=== PATIENT | male | born 1965 | race Caucasian/White ===

== ENCOUNTER 2020-10-10 04:48 | Emergency (ER) | payer SELFPAY ==
[2020-10-10 04:49] VITALS: BP 208/60; PULSE 90; RESP 24; TEMP 35; O2SAT 81; BMI 23.6
--- NOTE | 2020-10-10 04:55 | XRR_ITS ---
PROCEDURE INFORMATION: Exam: XR Chest Exam date and time: 10/10/2020 5:05 AM Age: 55 years old Clinical indication: Shortness of breath; Patient HX: Resp arrest. Intubated prior to er arrival. ; Additional info: Resp disress TECHNIQUE: Imaging protocol: XR of the chest. Views: 1 view. COMPARISON: CR Chest 1 [place] [id number] 05/03/2019 2:40 AM FINDINGS: Lungs: There is redistribution and indistinctness of the pulmonary vasculature, in association with increased interstitial markings and bilateral perihilar airspace opacities, which in the setting of cardiomegaly is suggestive of pulmonary edema. Pneumonia should be excluded clinically. No large pleural effusion or pneumothorax. No lineEndotracheal tube is in satisfactory position. Pleural spaces: See Lungs finding. Heart/Mediastinum: Stable cardiomediastinal silhouette. Bones/joints: Unremarkable. XR/XR chest 1V portable [id number] IMPRESSION: Imaging findings of pulmonary edema. Pneumonia should be excluded clinically.
--- NOTE | 2020-10-10 04:55 | CTR_ITS ---
PROCEDURE INFORMATION: Exam: CT Head Without Contrast Exam date and time: 10/10/2020 5:05 AM Age: 55 years old Clinical indication: Altered mental status/memory loss; Patient HX: Resp arrest. Intubated on route to er. Unresponsive. Hypothermic. ; Additional info: AMS TECHNIQUE: Imaging protocol: Computed tomography of the head without contrast. Radiation optimization: All CT scans at this facility use at least one of these dose optimization techniques: automated exposure control; mA and/or kV adjustment per patient size (includes targeted exams where dose is matched to clinical indication); or iterative reconstruction. COMPARISON: No relevant prior studies available. RADIATION DOSE METRICS: Total DLP (mGy-cm): 651.83 FINDINGS: Brain: There is diffuse subarachnoid hemorrhage throughout both cerebral and cerebellar hemispheres, basal cisterns, and extensive acute blood products throughout the mildly dilated ventricular system. Cerebral ventricles: Mild obstructive hydrocephalus is present. Bones/joints: Unremarkable. No acute fracture. Paranasal sinuses: There is partial opacification the maxillary sinuses and mild mucosal thickening of the ethmoid air cells. Mastoid air cells: Visualized mastoid air cells are well aerated. Soft tissues: Unremarkable. CT/CT head wo con* [id number] IMPRESSION: Diffuse subarachnoid hemorrhage throughout both cerebral and cerebellar hemispheres, basal cisterns, and extensive acute blood products throughout the mildly dilated ventricular system. THIS REPORT CONTAINS FINDINGS THAT MAY BE CRITICAL TO PATIENT CARE. The findings were verbally communicated via telephone conference with DR. PICKARD at 5:40 AM CDT on 10/10/2020. The findings were acknowledged and understood. Radiation Dose CTDIVOL = (mGy): DLP = 651.83 (mGy-cm)
--- NOTE | 2020-10-10 04:56 | ECG_ITS ---
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 Measurements Intervals Frost Rate: 70 P: -49 AZ: 124 QRS: -1 QRSD: 130 T: 148 QT: 439 QTc: 474 Interpretive Statements ECTOPIC ATRIAL RHYTHM POSSIBLE LEFT ATRIAL ENLARGEMENT [-0.1mV P WAVE IN V1/V2] ANTEROSEPTAL MYOCARDIAL INFARCTION , PROBABLY OLD [40+ ms Q WAVE IN V1/V2] MODERATE T-WAVE ABNORMALITY, CONSIDER LATERAL ISCHEMIA MODERATE T-WAVE ABNORMALITY, CONSIDER INFERIOR ISCHEMIA Compared to ECG 05/03/2019 09:16:03 Ectopic atrial rhythm now present Myocardial infarct finding now present T-wave abnormality now present Possible ischemia now present Sinus rhythm no longer present ST (T wave) deviation no longer present Electronically Signed On 10-13-2020 12:28:45 CDT by Radha Chavez M.D. [id number] de la o
--- NOTE | 2020-10-10 04:57 | W.ED.SOB ---
HPI - SOB/Dyspnea General: Chief Complaint: Shortness of Breath/Dyspnea Stated Complaint: Resp Arrest Time Seen by Provider: 10/10/20 04:55 Source: EMS Mode of arrival: EMS Limitations: altered mental status History of Present Illness: HPI Narrative: 55-year-old male brought in by EMS with respiratory failure. Per EMS patient was went to bed with last night she woke up this morning to him in severe distress. She states that she was unable to wake him and he was agonal breathing. When EMS arrived he was having agonal breathing they gave him Narcan with no response. He has no known history of recent drug abuse. Patient was intubated at scene by EMS and is currently intubated. Patient has been unresponsive he was given succinylcholine and etomidate and Versed for his intubation. Patient has severe hypertension with blood pressure in the 230s and 40s per EMS. Review of Systems General: Reports: ROS unobtainable due to medical condition and ROS unobtainable due to mental status Physical Exam Const: COMMON NORMALS: negative for patient oriented x3 EXAM LIMITATIONS: altered mental status GENERAL APPEARANCE: in distress and ill appearing HENMT: COMMON NORMALS: normocephalic and atraumatic HEAD & SCALP: normocephalic and atraumatic Eye: COMMON NORMALS: negative for Equal, round and reactive pupils present (Pupils constricted) and EOMs intact bilaterally PUPIL: No Equal, round and reactive pupils present (Pupils constricted) Neck/C-Spine: COMMON NORMALS: full ROM and supple Chest: COMMONS NORMALS: normal inspection of the chest and normal palpation of entire chest wall Resp: AUSCULTATION: wheezes OTHER: Intubated with equal good breath sounds bilaterally Cardio: COMMON NORMALS: regular rate, regular rhythm and No murmurs present (Cardio) RATE: regular rate RHYTHM: regular rhythm GI: COMMON NORMALS: Normal to inspection, nondistended, normoactive bowel sounds present, Soft to palpation, non-tender and no masses PALPATION: Yes Soft to palpation Extremity: COMMON NORMALS: normal to inspection and full ROM Neuro: COMMON NORMALS: negative for patient oriented x3 Psych: COMMON NORMALS: negative for mental status grossly normal Skin: COMMON NORMALS: no rashes or lesions noted and no wounds NARRATIVE SKIN EXAM: Cool to touch GENERAL SKIN EXAM: no rashes or lesions noted Course Vital Signs: Vital signs: Vital Signs Temperature 95.0 F L 10/10/20 04:49 Pulse Rate 90 10/10/20 04:49 Respiratory Rate 24 H 10/10/20 04:49 Blood Pressure 208/60 10/10/20 04:49 Pulse Oximetry 81 L 10/10/20 04:49 MDM - SOB/Dyspnea MDM Narrative: Medical decision making narrative: Patient presents here with a very large subarachnoid hemorrhage. Patient was intubated in route and here he has had no purposeful movements and pupils are pinpoint. Believe is hemorrhage is likely due to hypertensive episode. He is noncompliant on his blood pressure medicines. Patient transferred to [facility]. Patient started on a Cardene drip. Lab Data: Labs: Lab Results 10/10/20 10/10/20 10/10/20 Range/Units 04:49 05:03 05:03 WBC 23.2 H (4.0-10.0) 10^3/ uL RBC 5.41 H (4.1-5.3) 10^6/u L Hgb 15.2 (11.7-16.6) g/dL Hct 50.5 (42.0-52.0) % MCV 93.3 (80-94) fL MCH 28.1 (28.0-34.0) pg MCHC 30.1 (30.0-36.0) g/dL RDW 15.1 (12.1-15.1) % Plt Count 354 (130-400) 10^3/c mm MPV 10.2 (7.4-10.4) fL Neut % (Auto) 77.1 % Lymph % (Auto) 14.7 % Evangeline % (Auto) 4.9 % Eos % (Auto) 2.2 % Baso % (Auto) 0.4 % Neut # (Auto) 17.90 H (1.8-7.7) 10^3/u L Lymph # (Auto) 3.4 (0.8-4.8) 10^3/u L Evangeline # (Auto) 1.1 H (0.2-0.9) 10^3/u L Eos # (Auto) 0.5 (0.0-0.8) 10^3/u L Baso # (Auto) 0.1 (0.0-0.1) 10^3/u L Nucleated RBC % (a uto) 0 % Nucleated RBCs # 0.0 /100WBC PT 14.00 (12.1-14.9) SECO NDS INR 1.05 (0.8-1.2) Specimen Type Arterial Sample Site Brachial, left ABG pH 7.09 L* (7.35-7.45) ABG pCO2 79.9 H* (35-45) mmHg ABG pO2 110.0 H (80.0-100.0) mmH g ABG HCO3 24.0 (22-26) mmol/L ABG Base Excess -8.1 L (-2.0-2.0) mmol/ L Emanuel Test N/a Hematocrit 48.9 (42-52) % O2 Delivery Device Vent FiO2 100.0 % Tidal Volume 0.45 PEEP 10.0 cmH20 Bindery Machine Operator ID Jlg Sodium (136-145) mmol/L Potassium (3.5-5.1) mmol/L Chloride (98-107) mmol/L Carbon Dioxide (22-29) mmol/L Anion Gap (5-19) BUN (6-20) mg/dL Creatinine (0.7-1.2) mg/dL GFR Calculation (90-130) mL/min Glucose (65-115) mg/dL Calculated Osmolal ity (285-295) mOsm/k g Lactate (0.5-2.2) mmol/L Calcium (8.5-10.5) mg/dL Magnesium (1.7-2.3) mg/dL Total Bilirubin (0.15-1.2) mg/dL AST (0-40) U/L ALT (0-41) U/L Alkaline Phosphata se (40-130) IU/L Troponin T Baselin e (0-15) ng/L NT-Pro-B Natriuret Pep (0-125) pg/mL Total Protein (6.6-8.7) g/dL Albumin (3.5-5.2) g/dL Globulin (1.3-4.6) g/dL Urine Color (Yellow) Urine Appearance (CLEAR) Urine pH (5-7) Ur Specific Gravit y (1.005-1.030) Urine Protein (Negative) Urine Glucose (UA) (Normal) Urine Ketones (Negative) Urine Blood (Negative) Urine Nitrate (Negative) Urine Bilirubin (Negative) Urine Urobilinogen (Negative) mg/dL Ur Leukocyte Varsha ase (Negative) Urine RBC (0-2) /hpf Urine WBC (0-5) /hpf Ur Squamous Epith Cells (0-5) /hpf Amorphous Sediment /hpf Urine Bacteria (NONE) /hpf Urine Sperm /hpf Salicylates (3-10) mg/dL Acetaminophen (10-30) ug/mL Ethyl Alcohol (0-10) mg/dL SARS-CoV-2 Ag (Rap id) (Negative) 10/10/20 10/10/20 10/10/20 Range/Units 05:03 05:03 05:03 WBC (4.0-10.0) 10^3/ uL RBC (4.1-5.3) 10^6/u L Hgb (11.7-16.6) g/dL Hct (42.0-52.0) % MCV (80-94) fL MCH (28.0-34.0) pg MCHC (30.0-36.0) g/dL RDW (12.1-15.1) % Plt Count (130-400) 10^3/c mm MPV (7.4-10.4) fL Neut % (Auto) % Lymph % (Auto) % Evangeline % (Auto) % Eos % (Auto) % Baso % (Auto) % Neut # (Auto) (1.8-7.7) 10^3/u L Lymph # (Auto) (0.8-4.8) 10^3/u L Evangeline # (Auto) (0.2-0.9) 10^3/u L Eos # (Auto) (0.0-0.8) 10^3/u L Baso # (Auto) (0.0-0.1) 10^3/u L Nucleated RBC % (a uto) % Nucleated RBCs # /100WBC PT (12.1-14.9) SECO NDS INR (0.8-1.2) Specimen Type Sample Site ABG pH (7.35-7.45) ABG pCO2 (35-45) mmHg ABG pO2 (80.0-100.0) mmH g ABG HCO3 (22-26) mmol/L ABG Base Excess (-2.0-2.0) mmol/ L Emanuel Test Hematocrit (42-52) % O2 Delivery Device FiO2 % Tidal Volume PEEP cmH20 Bindery Machine Operator ID Sodium 138 (136-145) mmol/L Potassium 4.8 (3.5-5.1) mmol/L Chloride 106 (98-107) mmol/L Carbon Dioxide 23 (22-29) mmol/L Anion Gap 13.8 (5-19) BUN 41 H (6-20) mg/dL Creatinine 2.0 H (0.7-1.2) mg/dL GFR Calculation 34.6 L (90-130) mL/min Glucose 236 H (65-115) mg/dL Calculated Osmolal ity 304 H (285-295) mOsm/k g Lactate 1.0 (0.5-2.2) mmol/L Calcium 8.0 L (8.5-10.5) mg/dL Magnesium 2.1 (1.7-2.3) mg/dL Total Bilirubin 0.2 (0.15-1.2) mg/dL AST 16 (0-40) U/L ALT 11 (0-41) U/L Alkaline Phosphata se 121 (40-130) IU/L Troponin T Baselin e 37 H (0-15) ng/L NT-Pro-B Natriuret Pep 5393 H (0-125) pg/mL Total Protein 7.4 (6.6-8.7) g/dL Albumin 4.0 (3.5-5.2) g/dL Globulin 3.4 (1.3-4.6) g/dL Urine Color (Yellow) Urine Appearance (CLEAR) Urine pH (5-7) Ur Specific Gravit y (1.005-1.030) Urine Protein (Negative) Urine Glucose (UA) (Normal) Urine Ketones (Negative) Urine Blood (Negative) Urine Nitrate (Negative) Urine Bilirubin (Negative) Urine Urobilinogen (Negative) mg/dL Ur Leukocyte Varsha ase (Negative) Urine RBC (0-2) /hpf Urine WBC (0-5) /hpf Ur Squamous Epith Cells (0-5) /hpf Amorphous Sediment /hpf Urine Bacteria (NONE) /hpf Urine Sperm /hpf Salicylates < 0.3 L (3-10) mg/dL Acetaminophen < 5.0 L (10-30) ug/mL Ethyl Alcohol < 10 (0-10) mg/dL SARS-CoV-2 Ag (Rap id) (Negative) 10/10/20 10/10/20 Range/Units 05:03 05:07 WBC (4.0-10.0) 10^3/ uL RBC (4.1-5.3) 10^6/u L Hgb (11.7-16.6) g/dL Hct (42.0-52.0) % MCV (80-94) fL MCH (28.0-34.0) pg MCHC (30.0-36.0) g/dL RDW (12.1-15.1) % Plt Count (130-400) 10^3/c mm MPV (7.4-10.4) fL Neut % (Auto) % Lymph % (Auto) % Evangeline % (Auto) % Eos % (Auto) % Baso % (Auto) % Neut # (Auto) (1.8-7.7) 10^3/u L Lymph # (Auto) (0.8-4.8) 10^3/u L Evangeline # (Auto) (0.2-0.9) 10^3/u L Eos # (Auto) (0.0-0.8) 10^3/u L Baso # (Auto) (0.0-0.1) 10^3/u L Nucleated RBC % (a uto) % Nucleated RBCs # /100WBC PT (12.1-14.9) SECO NDS INR (0.8-1.2) Specimen Type Sample Site ABG pH (7.35-7.45) ABG pCO2 (35-45) mmHg ABG pO2 (80.0-100.0) mmH g ABG HCO3 (22-26) mmol/L ABG Base Excess (-2.0-2.0) mmol/ L Emanuel Test Hematocrit (42-52) % O2 Delivery Device FiO2 % Tidal Volume PEEP cmH20 Bindery Machine Operator ID Sodium (136-145) mmol/L Potassium (3.5-5.1) mmol/L Chloride (98-107) mmol/L Carbon Dioxide (22-29) mmol/L Anion Gap (5-19) BUN (6-20) mg/dL Creatinine (0.7-1.2) mg/dL GFR Calculation (90-130) mL/min Glucose (65-115) mg/dL Calculated Osmolal ity (285-295) mOsm/k g Lactate (0.5-2.2) mmol/L Calcium (8.5-10.5) mg/dL Magnesium (1.7-2.3) mg/dL Total Bilirubin (0.15-1.2) mg/dL AST (0-40) U/L ALT (0-41) U/L Alkaline Phosphata se (40-130) IU/L Troponin T Baselin e (0-15) ng/L NT-Pro-B Natriuret Pep (0-125) pg/mL Total Protein (6.6-8.7) g/dL Albumin (3.5-5.2) g/dL Globulin (1.3-4.6) g/dL Urine Color Yellow (Yellow) Urine Appearance Sl cloudy A (CLEAR) Urine pH 5 (5-7) Ur Specific Gravit y 1.020 (1.005-1.030) Urine Protein 3+ H (Negative) Urine Glucose (UA) Norm (Normal) Urine Ketones Negative (Negative) Urine Blood Neg (Negative) Urine Nitrate Negative (Negative) Urine Bilirubin Neg (Negative) Urine Urobilinogen Norm (Negative) mg/dL Ur Leukocyte Varsha ase Trace H (Negative) Urine RBC 0-4 H (0-2) /hpf Urine WBC 25-40 H (0-5) /hpf Ur Squamous Epith Cells 0-4 H (0-5) /hpf Amorphous Sediment 2+ /hpf Urine Bacteria 1+ H (NONE) /hpf Urine Sperm 4+ /hpf Salicylates (3-10) mg/dL Acetaminophen (10-30) ug/mL Ethyl Alcohol (0-10) mg/dL SARS-CoV-2 Ag (Rap id) Negative (Negative) EKG Data^: EKG 1: Attestation: I personally reviewed and interpreted this EKG as follows: EKG Interpretation Date: 10/10/20 EKG interpretation time: 05:06 Interpretation: nsr hr [address] or t wave abnormalities qrs 130 qtc 459 Critical Care Time Critical Care Time: Critical Care Time: Yes Total Critical Care Time: 35 Attestation: This case had a high probability of a clinically significant, sudden, or life threatening deterioration of this patient's condition which required my full and direct attention, intervention and personal management. 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
[2020-10-10 05:01] LABS: Arterial Blood Gas Hematocrit 48.9 % (42-52); Base Excess ABG -8.1 mmol/L (-2.0-2.0); Blood Gas Sample Site Brachial, left; Blood Gas Sample Type Arterial; Blood Gas Tidal Volume 0.45; Oxygen Device VENT
[2020-10-10 05:02] LABS: ABG PCO2 79.9 mmHg (35-45); ABG PH Result 7.09 (7.35-7.45)
[2020-10-10 05:10] LABS: Basophils # 0.1 10^3/uL (0.0-0.1); Basophils % 0.4 %; Eosinophils # 0.5 10^3/uL (0.0-0.8); Eosinophils % 2.2 %; Hematocrit 50.5 % (42.0-52.0); Hemoglobin 15.2 g/dL (11.7-16.6); Lymphocytes # 3.4 10^3/uL (0.8-4.8); Lymphocytes % 14.7 %; Mean Corpuscular HGB Conc 30.1 g/dL (30.0-36.0); Mean Corpuscular Hemoglobin 28.1 pg (28.0-34.0); Mean Corpuscular Volume 93.3 fL (80-94); Mean Platelet Volume 10.2 fL (7.4-10.4); Monocytes # 1.1 10^3/uL (0.2-0.9); Monocytes % 4.9 %; Neutrophils % 77.1 %; Nucleated Red Blood Cells % 0 %; Platelet Count 354 10^3/cmm (130-400); Red Blood Count 5.41 10^6/uL (4.1-5.3); Red Cell Distribution Width 15.1 % (12.1-15.1); White Blood Count 23.2 10^3/uL (4.0-10.0)
--- NOTE | 2020-10-10 05:17 | PC.NURSE ---
EKG taken and given to Dr. Bower
[2020-10-10 05:20] LABS: INR 1.05 (0.8-1.2)
[2020-10-10 05:28] LABS: Add Urine Microscopic? YES; Bilirubin Urine Neg (Negative); Blood Urine Neg (Negative); Glucose Urine UA Norm (Normal); Ketones Urine Negative (Negative); Leukocyte Esterase Urine Trace (Negative); Nitrate Urine Negative (Negative); Protein Urine 3+ (Negative); Troponin(5th) Baseline 37 ng/L (0-15); Urine Color Yellow (Yellow); Urobilinogen Urine Norm (Negative); pH Urine 5 (5-7)
[2020-10-10 05:32] LABS: Add Urine Culture? Yes; Amorphous Sediment Urine 2+ /hpf; Bacteria Urine 1+ /hpf; RBC Urine 0-4 /hpf (0-2); Sperm Urine 4+ /hpf; Squamous Epithelial Cell Urine 0-4 /hpf (0-5); WBC Urine 25-40 /hpf (0-5)
[2020-10-10 05:37] LABS: Acetaminophen < 5.0 ug/mL (10-30); Alanine Aminotransferase 11 U/L (0-41); Alcohol Level < 10 mg/dL (0-10); Alkaline Phosphatase 121 IU/L (40-130); Anion Gap 13.8 (5-19); Aspartate Amino Transferase 16 U/L (0-40); Blood Urea Nitrogen 41 mg/dL (6-20); Carbon Dioxide 23 mmol/L (22-29); Chloride 106 mmol/L (98-107); Globulin 3.4 g/dL (1.3-4.6); Glomerular Filtration Rate 34.6 mL/min (90-130); Glucose 236 mg/dL (65-115); Magnesium 2.1 mg/dL (1.7-2.3); NT Pro B Type Natriuretic Pept 5393 pg/mL (0-125); Osmolality Calculated 304 mOsm/kg (285-295); Potassium 4.8 mmol/L (3.5-5.1); Salicylate < 0.3 mg/dL (3-10); Sodium 138 mmol/L (136-145); Total Bilirubin 0.2 mg/dL (0.15-1.2); Total Protein 7.4 g/dL (6.6-8.7)
[2020-10-10 05:39] LABS: SARS Covid-2 Antigen Negative (Negative)
[2020-10-10 05:40] VITALS: BP 265/109; PULSE 71; RESP 17
[2020-10-10] MEDS: labetalol 5 mg/mL SDV 20mL 20 MG IVP (05:46)
[2020-10-10] MEDS: piperacillin-tazobactam 3.375 GM in sodium chloride 0.9% (plus) 50 ML IV (05:46)
[2020-10-10 05:47] VITALS: RESP 12
[2020-10-10] MEDS: nicardipine 20 MG/200 ML PREMIX 50 MG IV (05:47)
[2020-10-10 05:48] VITALS: O2SAT 91
[2020-10-10 05:51] VITALS: BP 92/56; PULSE 49; O2SAT 90
--- NOTE | 2020-10-10 05:57 | PC.NURSE ---
Cardene was stopped after patient BP decreased. Dr. Bower was advised
== END 2020-10-10 06:44 | disposition short-term general hospital (02) ==
PROVIDERS: Emergency Provider Emergency Medicine
DX: J96.90 Respiratory failure, unspecified, unspecified whether with hypoxia or hypercapnia (principal); I60.9 Nontraumatic subarachnoid hemorrhage, unspecified; I16.1 Hypertensive emergency
CPT/HCPCS: 36600; 70450; 71045; 80053; 80307; 81001; 82803; 83605; 83735; 83880; 84484; 85025; 85610; 87040; 87070; 87077; 87086; 87426; 93005; 94002; 94799; 96365; 96375; 99291; 99292; J2543; J2930; J3490